=== PATIENT | male | born 1970 | race Caucasian/White ===

== ENCOUNTER 2025-02-18 12:37 | Emergency (ER) | payer OTHER, SELFPAY ==
[2025-02-18 13:14] VITALS: BP 134/86; PULSE 84; RESP 18; TEMP 37; O2SAT 99; BMI 27.7
--- NOTE | 2025-02-18 13:21 | DI.US.S_ITS ---
PROCEDURE: US PERIPH VENOUS LOW EXTREM RT INDICATIONS: PAIN POSTERIOR CALF AND INFERIOR TO CALF AT ACHILLES AREA TECHNIQUE: Real-time imaging, as well as color and pulse Doppler interrogation, were performed of the lower extremity deep veins from the inguinal ligament to the popliteal fossa, with documentation of the visualized calf veins. COMPARISON: None. FINDINGS: The common femoral, femoral, popliteal, and the visualized calf veins are normally compressible, and free of intraluminal thrombus. Color and pulse Doppler demonstrate normal phasic intraluminal flow. There is normal augmentation response to distal compression maneuver. IMPRESSION: No findings of lower extremity deep venous thrombosis. Approved by: Alejandro Ramirez M.D. on 02/18/2025 at 14:28
--- NOTE | 2025-02-18 14:59 | ED_ITS ---
HPI - Extremity Problem <Marcela Wallis PA-C - Last Filed: 02/18/25 16:26> General Chief complaint: Extremity Problem,Nontraumatic Stated complaint: possible blood clot right leg Time Seen by Provider: 02/18/25 14:58 Source: patient Mode of arrival: Family Vehicle History of Present Illness HPI Narrative: Mr. Wright is a pleasant 54-year-old gentleman with no reported past medical history who presents to the emergency department for right calf pain since yesterday. Patient states that yesterday he developed acute sharp right calf pain without any trauma. He did however recently drive from [place] about 10 days ago, and has multiple recent prolonged car rides. When he was about 7 years old, he did have what sounds like a large traumatic hematoma of the right calf but he otherwise has no prior issues with the right lower leg. He denies any pain with range of motion of the ankle or the knee, there is no swelling, no bruising or skin changes. Describes the pain as sharp and severe and pulsating, and he was concerned about a DVT. Denies any chest pain or shortness of breath but does reports some right shoulder/neck discomfort. Also notes pain of the left 1st MTP that has been going on for the last year but is getting worse and causing him to walk in the lateral aspect of the foot. Denies fevers, chills, numbness, tingling, weakness. No history of VTE. He does not like to take medi cations, he did take aspirin earlier. Related Data Allergies Allergy/AdvReac Type Severity Reaction Status Date / Time No Known Drug Allergies Allergy Verified 02/18/25 13:16 Review of Systems <Marcela Wallis PA-C - Last Filed: 02/18/25 16:26> Review of Systems ROS Unobtainable: All systems reviewed & are unremarkable except as noted in HPI and below Patient History <Marcela Wallis PA-C - Last Filed: 02/18/25 16:26> Social History Smoking Status: Former smoker Smoking Status: Former smoker tobacco type: cigarettes Exam <Marcela Wallis PA-C - Last Filed: 02/18/25 16:26> Narrative Exam Narrative: GENERAL: 54 year old patient appears stated age. Well-developed patient, in no acute distress. HEAD: Atraumatic. Normocephalic. NECK: Trachea midline. Cervical ROM intact. CARDIOVASCULAR: Regular rate and rhythm. RESPIRATORY: ?Nonlabored respirations. ?Speaking in clear, full sentences. ?Clear to auscultation. Breath sounds equal bilaterally. No wheezes, rales, or rhonchi. ? EXTREMITIES: Tenderness to palpation of the right posterior distal calf muscle. There is visible fasciculation of the right calf muscle every 5 seconds or so, not consistent with his heart rate. There is no overlying deformity, edema, ecchymosis or visible varicosities. No erythema or increased warmth. He has strong DP and PT pulses bilaterally, feet are warm and well perfused. He does have some pain with palpation of the left 1st MTP but no overlying skin changes. Achilles tendon intact to palpation bilaterally, no difficulty with plantar or dorsiflexion. Negative Homans sign on the right. NEURO: AOx3. ?Clear speech. ?Moves all 4 extremities appropriately. SKIN: No rash or erythema of visible areas Initial Vital Signs Initial Vital Signs: Vital Signs Temperature 98.6 F 02/18/25 13:14 Pulse Rate 84 02/18/25 13:14 Respiratory Rate 18 02/18/25 13:14 Blood Pressure 134/86 02/18/25 13:14 Pulse Oximetry 99 02/18/25 13:14 Oxygen Delivery Method Room Air 02/18/25 13:14 <Dejah Cummings DO - Last Filed: 02/18/25 18:43> Initial Vital Signs Initial Vital Signs: Vital Signs Temperature 98.6 F 02/18/25 13:14 Pulse Rate 84 02/18/25 13:14 Respiratory Rate 18 02/18/25 13:14 Blood Pressure 134/86 02/18/25 13:14 Pulse Oximetry 99 02/18/25 13:14 Oxygen Delivery Method Room Air 02/18/25 13:14 Course <Marcela Wallis PA-C - Last Filed: 02/18/25 16:26> Orders Ordered: ED Orders 02/18/25 13:21 periph venous low extrem rt Stat 02/18/25 15:17 XR foot LT min 3V Stat XR tibia fibula RT 2V Stat Vital Signs Vital signs: Vital Signs - 8 hr 02/18/25 13:14 02/18/25 16:33 Temperature 98.6 F Pulse Rate 84 60 Respiratory Rate 18 18 Blood Pressure 134/86 127/80 Pulse Oximetry 99 98 Oxygen Delivery Method Room Air Room Air <Dejah Cummings DO - Last Filed: 02/18/25 18:43> Orders Ordered: ED Orders 02/18/25 13:21 US periph venous low extrem rt Stat 02/18/25 15:17 XR foot LT min 3V Stat XR tibia fibula RT 2V Stat Vital Signs Vital signs: Vital Signs - 8 hr 02/18/25 13:14 02/18/25 16:33 Temperature 98.6 F Pulse Rate 84 60 Respiratory Rate 18 18 Blood Pressure 134/86 127/80 Pulse Oximetry 99 98 Oxygen Delivery Method Room Air Room Air MDM - Extremity (Nontraumatic) <Marcela Wallis PA-C - Last Filed: 02/18/25 16:26> Medical Records Medical records narrative: No records available for review MDM Narrative Medical decision making narrative: 54-year-old gentleman with no reported past medical history who presents to the emergency department for right calf pain since yesterday. Differential diagnosis includes but isn't limited to calf strain, sprain, DVT, venous stasis, varicose vein, cellulitis, abscess, bony growth, etc. On exam patient is in no acute distress, nontoxic-appearing, all vital signs within normal limits. He has subjective pain and tenderness in the right calf with no deformities or skin changes, he is neurovascularly intact, no signs of infection. He does have some fasciculations of the right calf muscle. Right lower extremity venous ultrasound obtained. After discussion with the patient, we will also obtain x-ray tib-fib, informed patient of preliminary read of negative DVT. He is altered interested in x-ray of left foot given his left 1st MTP pain. He declines pain medication. Patient did inform triage that he was feeling some right-sided back pain in addition to some shortness of breath ho wever after discussing negative DVT results, patient is not interested in any type of cardiac workup. Right lower extremity venous ultrasound reveals no findings of lower extremity deep venous thrombosis. Right tib-fib x-ray reveals no acute bony abnormality. 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 We discussed that right calf pain and fasciculations could be musculoskeletal in nature, however he will need to follow up with PCP/ortho for further evaluation. Recommended rest, hydration, electrolytes, compression socks, anti- inflammatories. Discussed strict ED return precautions. Patient verbalized understanding of all information and is agreeable with the plan, questions answered. He is stable for discharge home. Discharge Plan Departure Patient Disposition: Home Clinical Impression: Right calf pain, 1st MTP arthritis Instructions: DI for Arthritis Activity Restrictions/Additional Instructions: Dear Mr. Wright, Thank you for coming to the emergency department. Today, we completed a work up for right calf pain and pulsating. Sometimes, we do not always find the cause for your symptoms in one ER visit. The findings on your exam today and on your imaging is reassuring. At this time, it is not 100% certain what is causing your symptoms, but we feel you can be discharged from the emergency department. It is possible this may worsen or you may get better. Please, if you get worse or your symptoms change, return to the emergency department. 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 For your right calf pain and fasciculations, I recommend that you start wearing compression socks, use anti-inflammatory pain medications such as ibuprofen, and increase hydration with water in addition to electrolyte beverages such as Pedialyte or liquid IV. Please, if this pain gets much worse, you develop any s kin changes or swelling or other concerns, return to the emergency department for further evaluation. Please call Medical Records to receive copies of your [phone]. Please follow up with your primary care doctor within the next 2-3 days for ER follow-up. (If you do not have a PCP you can call [phone]. ?to schedule an appointment with an [facility] Primary Care Provider) IF YOU DEVELOP ANY NEW OR WORSENING SYMPTOMS, RETURN TO THE ER! Please read the attached instructions, they highlight more specific treatments and interventions for you at home. Thank you for letting me participate in your care, Marcela Wallis PA-C Stand Alone Forms: Patient Portal/API ED Sign-out <Dejah Cummings DO - Last Filed: 02/18/25 18:43> Cosign ED Attending Shayna Attestation: I was immediately available in the department for consultation.
--- NOTE | 2025-02-18 15:17 | DI.RAD.S_ITS ---
PROCEDURE: XR TIBIA FUBULA RT 2V INDICATIONS: nontraumatic right calf pain TECHNIQUE: 2 views of the tibia and fibula were acquired. COMPARISON: None. FINDINGS: Bones: No fractures or dislocations. No suspicious bony lesions. Soft tissues: No suspicious soft tissue calcifications or masses. IMPRESSION: No acute bony abnormality. Approved by: Alejandro Ramirez M.D. on 02/18/2025 at 14:52
--- NOTE | 2025-02-18 15:17 | DI.RAD.S_ITS ---
PROCEDURE: XR FOOT LT MIN 3V INDICATIONS: 1st MTP pain; injury 1 year ago TECHNIQUE: 3 views of the foot were acquired. COMPARISON: None. FINDINGS: Bones: No fractures or dislocations. No suspicious bony lesions. First MTP joint space narrowing with marginal osteophytes Soft tissues: No tibiotalar joint effusion. Achilles tendon appears normal. IMPRESSION: First MTP degenerative arthritic changes Approved by: Alejandro Ramirez M.D. on 02/18/2025 at 14:47
[2025-02-18 16:33] VITALS: BP 127/80; PULSE 60; RESP 18; O2SAT 98
== END 2025-02-18 16:32 | disposition home or self-care (01) ==
PROVIDERS: Emergency Provider Physician Assistant
DX: M79.661 Pain in right lower leg (principal); M19.079 Primary osteoarthritis, unspecified ankle and foot
CPT/HCPCS: 73590; 73630; 93971; 99281; 99283